=== PATIENT | male | born 1945 | race Caucasian/White ===

== ENCOUNTER 2021-11-12 15:35 | Inpatient (IN) | payer OTHER ==
[2021-11-12 16:14] LABS: #Eosinphils 0.2 thou/uL (0.0-0.7); #Lymphocytes 1.5 thou/uL (1.20-3.40); #Monocytes 0.6 thou/uL (0.11-0.59); #Neutrophils 5.2 thou/uL (1.40-6.50); %Basophils 0.1 % (0.0-1.0); %Eosinophils 2.4 % (0.0-10.0); %Lymphocytes 20.3 % (21.0-51.0); %Monocytes 7.6 % (0.0-10.0); %Neutrophils 69.5 % (42.0-75.0); Hemoglobin 13.7 g/dL (14.0-18.0); Mean Corpuscular HGB CONC 33.3 g/dL (32.0-36.0); Mean Corpuscular Hemoglobin 30.3 pg (27.0-31.0); Mean Platelet Volume 6.5 fL (7.4-10.4); Platelet Count 205 thou/uL (130-400); RBC Distribution Width 12.1 % (11.5-14.5); Red Blood Cell (RBC) Count 4.54 mill/uL (4.70-6.10); White Blood Cell (WBC) Count 7.5 thou/uL (4.8-10.8)
[2021-11-12 16:37] LABS: ALT (SGPT) Less than 7 U/L (8-55); AST (SGOT) 12 U/L (5-34); Albumin 4.3 g/dL (3.4-4.8); Alkaline Phosphatase 69 U/L (40-110); Anion Gap 13 mmol/L (10-20); BUN (Urea Nitrogen) 12 mg/dL (8.4-25.7); Bilirubin, Total 1.2 mg/dL (0.2-1.2); Calc. Creatinine Clearance 0 mL/min (70-130); Calcium 9.5 mg/dL (7.8-10.44); Carbon Dioxide 28 mmol/L (23-31); Chloride 104 mmol/L (98-107); Estimated GFR 94; Globulin 2.3 g/dL (2.4-3.5); Glucose 102 mg/dL (83-110); Magnesium 1.9 mg/dL (1.6-2.6); Potassium 3.3 mmol/L (3.5-5.1); Protein, Total 6.6 g/dL (5.8-8.1); Sodium 142 mmol/L (136-145)
[2021-11-12] MEDS ORDERED: Acetaminophen 500 MG TAB ONE (16:41)
[2021-11-12] MEDS ORDERED: niCARdipine 25 MG/10 ML VIAL ONE ×2 (16:41→16:46)
[2021-11-12 17:12] LABS: Prothrombin Time 13.7 sec (12.0-14.7)
[2021-11-12 17:13] LABS: PTT 33.3 sec (22.9-36.1)
[2021-11-12] MEDS ORDERED: Ondansetron PF 4 MG/2 ML Vial IVP PRN (17:18)
[2021-11-12] MEDS ORDERED: Promethazine HCl 25 MG/ML VIAL IM PRN (17:18)
[2021-11-12] MEDS ORDERED: hydrALAZINE 20 MG/ML VIAL SLOW IVP PRN ×2 (17:18→21:28)
[2021-11-12] MEDS ORDERED: Sodium Chloride 0.9% 500 ML IV SCH (17:30)
[2021-11-12 18:21] LABS: Bilirubin Negative (Negative); Blood, Urine Negative (Negative); Clarity Clear (Clear); Glucose, Urine (Dipstick) Normal (Negative); Ketone, Urine Negative (Negative); Leukocyte Negative Leu/uL (Negative); Nitrite Negative (Negative); Protein, Urine (Dipstick) Negative (Neg-Trace); Specific Gravity, Urine 1.007 (1.002-1.036); Urobilinogen Normal mg/dL (Less than 2); pH, Urine 7.5 (5.0-9.0)
[2021-11-12] MEDS ORDERED: Potassium Phosphate 30 MMOL in Sodium Chloride 0.9% 250 ML 250 ML IVPB SCH (20:00)
[2021-11-12] MEDS: Famotidine/PF 20 mg/2ml Vial SLOW IVP SCH (20:34)
[2021-11-12] MEDS: Atorvastatin Calcium 20 MG TAB PO SCH (20:34)
[2021-11-12] MEDS: Lisinopril 10 MG TAB PO SCH (20:34)
[2021-11-12] MEDS: Tamsulosin HCl 0.4 MG CAP PO SCH (20:34)
[2021-11-12] MEDS: Carbidopa/Levodopa 25-100 mg Tablet PO SCH (20:34)
[2021-11-12] MEDS: Sodium Chloride 0.9% 1,000 ML IV SCH (20:45)
[2021-11-12] MEDS: Acetaminophen 500 MG TAB PO PRN (20:45)
[2021-11-13] MEDS: Carbidopa/Levodopa 25-100 mg Tablet PO SCH ×6 (00:15→23:27)
[2021-11-13] MEDS: niCARdipine 25 MG in Sodium Chloride 0.9% 250 ML 250 ML IVPB SCH ×2 (00:16→01:02)
[2021-11-13 00:28] LABS: Bacteria/HPF None Seen HPF (None Seen); Bilirubin Negative (Negative); Blood, Urine Negative (Negative); Clarity Clear (Clear); Glucose, Urine (Dipstick) Normal (Negative); Ketone, Urine Negative (Negative); Leukocyte Negative Leu/uL (Negative); Nitrite Negative (Negative); Protein, Urine (Dipstick) Negative (Neg-Trace); RBC/HPF None Seen HPF (0-3); Specific Gravity, Urine 1.008 (1.002-1.036); Squamous Epithelial None Seen HPF (0-3); Urobilinogen Normal mg/dL (Less than 2); WBC/HPF 0-3 HPF (0-3); pH, Urine 7.5 (5.0-9.0)
[2021-11-13 00:29] LABS: Urine Culture Reflex No No
[2021-11-13 00:49] LABS: SARS-CoV-2 NAA Rapid Test Not Detected (NotDetected)
[2021-11-13 03:22] LABS: #Eosinphils 0.2 thou/uL (0.0-0.7); #Lymphocytes 1.7 thou/uL (1.20-3.40); #Monocytes 0.8 thou/uL (0.11-0.59); #Neutrophils 6.1 thou/uL (1.40-6.50); %Basophils 0.4 % (0.0-1.0); %Eosinophils 1.7 % (0.0-10.0); %Lymphocytes 19.6 % (21.0-51.0); %Monocytes 8.5 % (0.0-10.0); %Neutrophils 69.8 % (42.0-75.0); Hemoglobin 13.8 g/dL (14.0-18.0); Mean Corpuscular HGB CONC 32.8 g/dL (32.0-36.0); Mean Corpuscular Hemoglobin 29.9 pg (27.0-31.0); Mean Corpuscular Volume 91.1 fL (78.0-98.0); Mean Platelet Volume 6.4 fL (7.4-10.4); Platelet Count 210 thou/uL (130-400); RBC Distribution Width 12.1 % (11.5-14.5); Red Blood Cell (RBC) Count 4.61 mill/uL (4.70-6.10); White Blood Cell (WBC) Count 8.8 thou/uL (4.8-10.8)
[2021-11-13 03:58] LABS: Anion Gap 12 mmol/L (10-20); BUN (Urea Nitrogen) 9 mg/dL (8.4-25.7); Calc. Creatinine Clearance 63 mL/min (70-130); Calcium 8.9 mg/dL (7.8-10.44); Carbon Dioxide 27 mmol/L (23-31); Chloride 106 mmol/L (98-107); Estimated GFR 94; Glucose 109 mg/dL (83-110); Magnesium 1.8 mg/dL (1.6-2.6); Potassium 3.2 mmol/L (3.5-5.1); Sodium 142 mmol/L (136-145)
[2021-11-13] MEDS: Sodium Chloride 0.9% 1,000 ML IV SCH (06:15)
[2021-11-13] MEDS: Lisinopril 10 MG TAB PO SCH (07:25)
[2021-11-13] MEDS: Famotidine/PF 20 mg/2ml Vial SLOW IVP SCH (07:26)
[2021-11-13] MEDS: Acetaminophen 500 MG TAB PO PRN ×2 (07:26→18:52)
[2021-11-13] MEDS: Finasteride 5 MG TAB PO SCH (07:26)
[2021-11-13] MEDS: Amantadine HCl 100 mg Capsule PO SCH (07:26)
[2021-11-13] MEDS ORDERED: Potassium Chloride 40 MEQ, Magnesium Sulfate 2 GM in Sodium Chloride 0.9% 250 ML 250 ML IVPB SCH (09:00)
[2021-11-13] MEDS ORDERED: Magnesium 2 GM/50 ML(in water) 2 GM in Premix Bag 1 BAG IVPB SCH (09:00)
[2021-11-13] MEDS ORDERED: Amlodipine 10 MG TAB PO SCH ×2 (09:00→18:45)
[2021-11-13] MEDS ORDERED: Furosemide 20 MG/2 ML VIAL SLOW IVP SCH (09:45)
[2021-11-13 16:26] VITALS: BMI 27.0
[2021-11-13] MEDS ORDERED: Lisinopril 10 MG TAB PO SCH (18:45)
[2021-11-13] MEDS: Atorvastatin Calcium 20 MG TAB PO SCH (21:11)
[2021-11-13] MEDS: Tamsulosin HCl 0.4 MG CAP PO SCH (21:11)
[2021-11-13] MEDS: Famotidine 20 MG TAB PO SCH (21:11)
[2021-11-13] MEDS ORDERED: Scopolamine 1.5 mg/72 hour Patch TD SCH (22:00)
[2021-11-14 03:52] LABS: #Eosinphils 0.3 thou/uL (0.0-0.7); #Lymphocytes 1.8 thou/uL (1.20-3.40); #Monocytes 0.6 thou/uL (0.11-0.59); #Neutrophils 4.4 thou/uL (1.40-6.50); %Basophils 0.3 % (0.0-1.0); %Eosinophils 3.9 % (0.0-10.0); %Lymphocytes 24.8 % (21.0-51.0); %Monocytes 8.3 % (0.0-10.0); %Neutrophils 62.7 % (42.0-75.0); Hemoglobin 13.5 g/dL (14.0-18.0); Mean Corpuscular HGB CONC 33.1 g/dL (32.0-36.0); Mean Corpuscular Volume 90.7 fL (78.0-98.0); Mean Platelet Volume 6.6 fL (7.4-10.4); Platelet Count 215 thou/uL (130-400); RBC Distribution Width 12.2 % (11.5-14.5); Red Blood Cell (RBC) Count 4.48 mill/uL (4.70-6.10); White Blood Cell (WBC) Count 7.1 thou/uL (4.8-10.8)
[2021-11-14 04:22] LABS: Anion Gap 13 mmol/L (10-20); BUN (Urea Nitrogen) 16 mg/dL (8.4-25.7); Calc. Creatinine Clearance 99 mL/min (70-130); Calcium 9.1 mg/dL (7.8-10.44); Carbon Dioxide 26 mmol/L (23-31); Chloride 105 mmol/L (98-107); Estimated GFR 94; Glucose 100 mg/dL (83-110); Phosphorus 3.2 mg/dL (2.3-4.7); Potassium 3.2 mmol/L (3.5-5.1); Sodium 141 mmol/L (136-145)
[2021-11-14] MEDS: Acetaminophen 500 MG TAB PO PRN (06:49)
[2021-11-14] MEDS ORDERED: Potassium Phosphate 30 MMOL in Sodium Chloride 0.9% 250 ML 250 ML IVPB SCH (07:30)
[2021-11-14] MEDS: Carbidopa/Levodopa 25-100 mg Tablet PO SCH ×4 (08:08→20:14)
[2021-11-14] MEDS: Amantadine HCl 100 mg Capsule PO SCH (08:08)
[2021-11-14] MEDS: Finasteride 5 MG TAB PO SCH (08:09)
[2021-11-14] MEDS: Lisinopril 10 MG TAB PO SCH ×2 (08:09→20:14)
[2021-11-14] MEDS: Famotidine 20 MG TAB PO SCH (08:09)
[2021-11-14] MEDS ORDERED: Amlodipine 10 MG TAB PO SCH (09:00)
[2021-11-14] MEDS ORDERED: Senokot S 8.6-50 MG TAB PO PRN (09:20)
[2021-11-14] MEDS ORDERED: Senokot S 8.6-50 MG TAB PO SCH ×2 (09:30→21:00)
[2021-11-14] MEDS ORDERED: Polyethylene Glycol 3350 17 GM Packet PO SCH (09:30)
[2021-11-14] MEDS: Atorvastatin Calcium 20 MG TAB PO SCH (20:14)
[2021-11-14] MEDS: Tamsulosin HCl 0.4 MG CAP PO SCH (20:14)
[2021-11-14 20:15] VITALS: BP 137/93
[2021-11-14 21:09] VITALS: TEMP 97.9
[2021-11-15] MEDS ORDERED: Polyethylene Glycol 3350 17 GM Packet PO SCH (09:00)
== END 2021-11-14 21:15 | DRG 83 ==
LOC: ERS 15:35 → CCU 17:22
PROVIDERS: ADMIT Surgery; ATTEND Specialist
DX: S06.5X9A Traumatic subdural hemorrhage with loss of consciousness of unspecified duration, initial encounter (principal); F05 Delirium due to known physiological condition; Z20.822 Contact with and (suspected) exposure to COVID-19; G20 Parkinson's disease; I10 Essential (primary) hypertension; Z96.651 Presence of right artificial knee joint; W18.30XA Fall on same level, unspecified, initial encounter; S06.6X9A Traumatic subarachnoid hemorrhage with loss of consciousness of unspecified duration, initial encounter; I16.0 Hypertensive urgency; E87.6 Hypokalemia; E83.42 Hypomagnesemia
CPT/HCPCS: 36415; 70450; 72125; 80048; 80053; 81003; 83735; 84100; 84484; 85025; 85379; 85610; 85730; 93005; 96365; 96366; G0390; J0360; J1940; J3475; J3480; J7030; J7050; S0028; U0002

== ENCOUNTER 2021-12-17 13:02 | Outpatient (CLI) | payer OTHER | END 2021-12-17 13:03 | disposition home or self-care (01) | LOC: BICCT 13:02 | PROVIDERS: ATTEND Physician Assistant Surgical | DX: S06.6X9D Traumatic subarachnoid hemorrhage with loss of consciousness of unspecified duration, subsequent encounter (principal) | CPT/HCPCS: 70450 ==

== ENCOUNTER 2022-01-04 11:11 | Emergency (ER) | payer OTHER ==
[2022-01-04 12:31] LABS: #Eosinphils 0.2 thou/uL (0.0-0.7); #Lymphocytes 1.3 thou/uL (1.20-3.40); #Monocytes 0.5 thou/uL (0.11-0.59); #Neutrophils 3.7 thou/uL (1.40-6.50); %Basophils 0.3 % (0.0-1.0); %Eosinophils 2.7 % (0.0-10.0); %Lymphocytes 22.6 % (21.0-51.0); %Monocytes 8.6 % (0.0-10.0); %Neutrophils 65.9 % (42.0-75.0); Hemoglobin 13.8 g/dL (14.0-18.0); Mean Corpuscular Hemoglobin 30.5 pg (27.0-31.0); Mean Corpuscular Volume 92.4 fL (78.0-98.0); Mean Platelet Volume 6.5 fL (7.4-10.4); Platelet Count 206 thou/uL (130-400); RBC Distribution Width 12.2 % (11.5-14.5); Red Blood Cell (RBC) Count 4.52 mill/uL (4.70-6.10); White Blood Cell (WBC) Count 5.7 thou/uL (4.8-10.8)
[2022-01-04 12:48] LABS: ALT (SGPT) Less than 7 U/L (8-55); AST (SGOT) 10 U/L (5-34); Albumin 4.5 g/dL (3.4-4.8); Alkaline Phosphatase 75 U/L (40-110); Anion Gap 13 mmol/L (10-20); BUN (Urea Nitrogen) 21 mg/dL (8.4-25.7); Bilirubin, Total 0.7 mg/dL (0.2-1.2); Calc. Creatinine Clearance 0 mL/min (70-130); Calcium 9.6 mg/dL (7.8-10.44); Carbon Dioxide 30 mmol/L (23-31); Chloride 103 mmol/L (98-107); Estimated GFR 86; Globulin 2.6 g/dL (2.4-3.5); Glucose 113 mg/dL (83-110); Potassium 3.5 mmol/L (3.5-5.1); Protein, Total 7.1 g/dL (5.8-8.1); Sodium 142 mmol/L (136-145)
[2022-01-04] MEDS ORDERED: hydrALAZINE 25 MG TAB ONE (13:48)
== END 2022-01-04 14:50 | disposition home or self-care (01) ==
LOC: ERS 11:11
DX: I10 Essential (primary) hypertension (principal); G20 Parkinson's disease
CPT/HCPCS: 36415; 70450; 80053; 84484; 85025; 93005

== ENCOUNTER 2022-02-22 14:54 | Emergency (ER) | payer OTHER ==
[2022-02-22 15:45] LABS: #Eosinphils 0.2 thou/uL (0.0-0.7); #Lymphocytes 1.6 thou/uL (1.20-3.40); #Monocytes 0.6 thou/uL (0.11-0.59); #Neutrophils 3.7 thou/uL (1.40-6.50); %Basophils 0.4 % (0.0-1.0); %Lymphocytes 25.7 % (21.0-51.0); %Monocytes 9.8 % (0.0-10.0); %Neutrophils 61.2 % (42.0-75.0); Hemoglobin 12.8 g/dL (14.0-18.0); Mean Corpuscular HGB CONC 33.7 g/dL (32.0-36.0); Mean Corpuscular Hemoglobin 31.1 pg (27.0-31.0); Mean Corpuscular Volume 92.3 fl (78.0-98.0); Mean Platelet Volume 6.5 fL (7.4-10.4); Platelet Count 168 10x3/uL (130-400); RBC Distribution Width 12.2 % (11.5-14.5); White Blood Cell (WBC) Count 6.1 10x3/uL (4.8-10.8)
[2022-02-22 16:02] LABS: INR-International Normal Ratio 1.1
[2022-02-22 16:15] LABS: ALT (SGPT) Less than 7 U/L (8-55); AST (SGOT) 22 U/L (5-34); Alkaline Phosphatase 69 U/L (40-110); Anion Gap 12 mmol/L (10-20); BUN (Urea Nitrogen) 22 mg/dL (8.4-25.7); Calc. Creatinine Clearance 0 mL/min (70-130); Calcium 9.1 mg/dL (7.8-10.44); Carbon Dioxide 27 mmol/L (23-31); Chloride 105 mmol/L (98-107); Estimated GFR 92; Glucose 127 mg/dL (83-110); Lipase 156 U/L (8-78); Potassium 3.6 mmol/L (3.5-5.1); Sodium 140 mmol/L (136-145)
== END 2022-02-22 17:24 | disposition home or self-care (01) ==
LOC: ERS 14:54
DX: R60.0 Localized edema (principal); I10 Essential (primary) hypertension
CPT/HCPCS: 36415; 71045; 80053; 83690; 83735; 83880; 84484; 85025; 85610; 85730; 93005